=== PATIENT | male | born 1980 | race Caucasian/White ===

== ENCOUNTER 2016-09-06 23:49 | Emergency (ER) | payer MEDICAID ==
[~2016-09-06] VITALS: Ht 177.8 cm; Wt 99.8 kg
[2016-09-07 00:06] VITALS: BP 123/75
--- NOTE | 2016-09-07 01:03 | NUR ---
Patient to OF.
--- NOTE | 2016-09-07 01:21 | NUR ---
PT BIB FAMILY C/O BUMP TO MEDIAL ASPECT OF LEFT FOREARM,PAINFUL TO TOUCH. PT NEEDS MEDICATION REFILL FOR ASTHMA INHALERS VENTOLIN AND ADVAIR-UNSURE OF DOSAGES. FULL A.R.O.M. NOTED, CAP REFILL-IMM, PAIN 5/10. PT DENIES N/V/D; SKIN IS INTACT, PINK/WARM/DRY; AAOX4, PERRL, WITH EVEN AND STEADY GAIT; LUNGS CLEAR BL, BREATHING UNLABORED; HR EVEN AND REGULAR, BL PERIPHERAL PULSES PRESENT; BS ACTIVE X4, NO TENDERNESS TO PALPATION. PT DENIES ANY FEVER, CP, SOB, OR COUGH AT THIS TIME; PT STATES 5/10 PAIN AT THIS TIME; VSS; PATIENT POSITIONED FOR COMFORT; HOB ELEVATED; BEDRAILS UP X2; BED DOWN.
--- NOTE | 2016-09-07 01:39 | NUR ---
Dr. Car evaluating patient.
[2016-09-07] MEDS ORDERED: LIDOCAINE 1% 500 MG/50 ML VIAL INJ SCH (02:30)
[2016-09-07] MEDS ORDERED: LIDOCAINE MPF 1% 50 MG/5 ML VIAL ONE (02:37)
[2016-09-07] MEDS ORDERED: NEOMYCIN/POLYMYXIN/BACITRACIN 0.9 GM/1 PKT TP ONE (02:38)
--- NOTE | 2016-09-07 02:45 | NUR ---
Patient noted to have existing wounds upon arrival to ER. Wound covered with dressing. Physician informed.
[2016-09-07 03:08] VITALS: BP 122/72
--- NOTE | 2016-09-07 03:09 | NUR ---
Patient discharged with v/s stable. Written and verbal after care instructions given and explained. Patient alert, oriented and verbalized understanding of instructions. Ambulatory with steady gait. All questions addressed prior to discharge. ID band removed. Patient advised to follow up with PMD. Rx of VENTOLIN HFA 90MCG 1-2 PUFF QID PRN, KEFLEX 500MG QID, QVAR 80MCG 2PUFF BID PRN,NORCO given. Patient educated on indication of medication including possible reaction and side effects. Opportunity to ask questions provided and answered.
== END 2016-09-07 03:09 | disposition home or self-care (01) ==
LOC: MED 23:49
DX: L72.3 Sebaceous cyst (principal); Z76.0 Encounter for issue of repeat prescription; R03.0 Elevated blood-pressure reading, without diagnosis of hypertension; J45.909 Unspecified asthma, uncomplicated
CPT/HCPCS: 10060; 73090; 99284; J2001

== ENCOUNTER 2020-02-29 00:09 | Emergency (ER) | payer MEDICAID ==
[~2020-02-29] VITALS: Ht 177.8 cm; Wt 99.8 kg
[2020-02-29 00:25] VITALS: BP 158/89
--- NOTE | 2020-02-29 00:25 | NUR ---
TO TENT AMBULATORY
--- NOTE | 2020-02-29 00:30 | NUR ---
SEEN AND EXAMINED BY MEAGAN WITH ORDERS, CARRIED OUT
[2020-02-29] MEDS ORDERED: ALBUTEROL SULFATE/IPRATROPIU 3 ML SOL IH ONE (00:35)
--- NOTE | 2020-02-29 01:05 | NUR ---
RT AT THE TENT GIVING BREATHING TREATMENT, TOLERATED WELL.
[2020-02-29] MEDS ORDERED: methylPREDNISolone SS 40 MG in WATER STERILE 1 ML IM ONE (01:50)
--- NOTE | 2020-02-29 01:50 | NUR ---
MEDICATED PER ERMDS ORDER, TOLERATED WELL.
[2020-02-29] MEDS ORDERED: methylPREDNISolone SS 40 MG/ML VIAL ONE (01:51)
[2020-02-29] MEDS ORDERED: WATER STERILE 10 ML MC ONE (01:51)
--- NOTE | 2020-02-29 01:55 | NUR ---
RESULT BACK AND NOTED BY ERMD AND FOR D/C
[2020-02-29] MEDS ORDERED: KETOROLAC 30 MG/ML VIAL IM ONE (02:05)
[2020-02-29] MEDS ORDERED: KETOROLAC 30 MG/ML VIAL ONE (02:05)
[2020-02-29 02:28] VITALS: BP 126/82
--- NOTE | 2020-02-29 02:28 | NUR ---
Patient discharged with v/s stable. Written and verbal after care instructions given and explained. Patient alert, oriented and verbalized understanding of instructions. Ambulatory with steady gait. All questions addressed prior to discharge. ID band removed. Patient advised to follow up with PMD. Rx of ALBUTEROL, NAPROSYN, PREDNISONE given. Patient educated on indication of medication including possible reaction and side effects. Opportunity to ask questions provided and answered.
== END 2020-02-29 02:28 | disposition home or self-care (01) ==
LOC: MED 00:09
DX: J45.901 Unspecified asthma with (acute) exacerbation (principal); G89.29 Other chronic pain; M25.511 Pain in right shoulder; Z98.890 Other specified postprocedural states
CPT/HCPCS: 71045; 94640; 96372; 99284; J1885; J2920

== ENCOUNTER 2021-05-24 00:52 | Emergency (ER) | payer MEDICAID ==
[~2021-05-24] VITALS: Ht 177.8 cm; Wt 90.7 kg
[2021-05-24 01:00] VITALS: BP 133/81
--- NOTE | 2021-05-24 01:03 | NUR ---
TO LOBBY A/W BED AMBULATORY
--- NOTE | 2021-05-24 01:21 | NUR ---
41 Y/O MALE BIBS, C/O SORE AND SWOLLEN THROAT X2 WKS. PATIENT PRESENTS TO ED WITH DIZZINESS, DIFFICULTY SWALLOWING, AND PAIN. PT STATES IT HAS BEEN GOING ON FOR 2 WEEKS BUT GOTTEN WORSE THE LAST 2 DAYS. NO TRAUMA NOTED, NO ONE SICK AT HOME. DENIES N/V/D; SKIN IS PINK/WARM/DRY; AAOX4 WITH EVEN AND STEADY GAIT; LUNGS CLEAR BL; HR EVEN AND REGULAR; PT DENIES ANY FEVER, CP, SOB, OR COUGH AT THIS TIME; PATIENT STATES PAIN OF 8/10 AT THIS TIME; VSS; PATIENT POSITIONED FOR COMFORT; HOB ELEVATED; BEDRAILS UP X2; BED DOWN. ER MD MADE AWARE OF PT STATUS. HX: ASTHMA NKA MEDS: CLARITIN, INHALER, ZANAX, MOTRIN, SOMAS
[2021-05-24] MEDS ORDERED: DEXAMETHASONE 10 MG/ML VIAL PO ONE (01:50)
--- NOTE | 2021-05-24 01:59 | NUR ---
FINANCIAL UNDERWRITER AT BEDSIDE
--- NOTE | 2021-05-24 02:09 | NUR ---
STREP SWABS COLLECTED AND HANDED TO EXECUTIVE VICE PRESIDENT JAVON
--- NOTE | 2021-05-24 02:13 | NUR ---
PT TAKEN TO RADIOLOGY
[2021-05-24 02:14] LABS: BASOPHILS # (AUTO) 0.2 K/uL (0.00-0.22); BASOPHILS % (AUTO) 2.7 % (0.0-2.0); EOSINOPHILS # (AUTO) 0.3 K/uL (0-0.4); EOSINOPHILS % (AUTO) 4.2 % (0.0-4.0); HEMATOCRIT 43.7 % (36-52); HEMOGLOBIN 15.4 g/dL (12.0-18.0); LYMPHOCYTES # (AUTO) 2.2 K/uL (2.0-11.5); LYMPHOCYTES % (AUTO) 30.5 % (20.5-51.1); MEAN CORPUSCULAR HEMOGLOBIN 28 pg (27-31); MEAN CORPUSCULAR HGB CONC 35 g/dL (33-37); MONOCYTES # (AUTO) 0.5 K/uL (0.8-1.0); MONOCYTES % (AUTO) 7.1 % (1.7-9.3); NEUTROPHILS % (AUTO) 55.5 % (42.2-75.2); PLATELET COUNT (AUTO) 275 K/uL (140-450); RED BLOOD CELL COUNT(AUTO) 5.46 MIL/uL (4.20-6.10); RED CELL DISTRIBUTION WIDTH 13.2 % (11.6-13.7); WHITE BLOOD COUNT (AUTO) 7.1 K/uL (4.8-10.8)
[2021-05-24 02:28] LABS: ANION GAP 8.4 (8-16); CREATININE 1.1 mg/dL (0.6-1.3); POTASSIUM 3.4 mmol/L (3.5-5.1)
[2021-05-24 04:17] LABS: FREE T4 (FREE THYROXINE) 1.02 ng/dL (0.76-1.46); THYROID STIMULATING HORMONE 2.16 uIU/mL (0.34-3.74)
[2021-05-24] MEDS ORDERED: NAPR-54 PO (04:29)
[2021-05-24 04:35] VITALS: BP 133/81
--- NOTE | 2021-05-24 04:35 | NUR ---
Patient discharged with v/s stable. Written and verbal after care instructions given and explained. Patient alert, oriented and verbalized understanding of instructions. Ambulatory with steady gait. All questions addressed prior to discharge. ID band removed. Patient advised to follow up with PMD. Rx of NAPROXEN given. Patient educated on indication of medication including possible reaction and side effects. Opportunity to ask questions provided and answered. VSS, A/OX4, AMBULATORY, UNLABORED BREATHING, AND CALM DEMEANOR.
== END 2021-05-24 04:35 | disposition home or self-care (01) ==
LOC: MED 00:52
DX: M54.2 Cervicalgia (principal); J02.9 Acute pharyngitis, unspecified; R22.1 Localized swelling, mass and lump, neck; R13.10 Dysphagia, unspecified; J45.909 Unspecified asthma, uncomplicated; Z79.899 Other long term (current) drug therapy
CPT/HCPCS: 36415; 70490; 80048; 84439; 84443; 85025; 87081; 93005; 99285; J1100